=== PATIENT | female | born 1975 | race Caucasian/White ===

== ENCOUNTER 2016-12-12 01:37 | Inpatient (IN) | payer OTHER ==
[~2016-12-12] VITALS: Ht 162.6 cm; Wt 90.7 kg
--- NOTE | ~2016-12-12 | EKG ---
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1975 Requested By: Corona Moulton Order Number: [id number] MD: Andres Simon Measurements Intervals [place] Rate: 94 P: [place]: QRS: 22 QRSD: 92 T: -89 QT: 500 QTc: 626 Interpretive Statements Sinus rhythm Nonspecific ST and T wave abnormality Prolonged QT interval Compared to ECG 08/01/2006 15:55:43 T-wave abnormality now present Prolonged QT interval now present Sinus bradycardia no longer present Electronically Signed On 12-12-2016 16:01:56 CDT by Andres Simon [email or web address] <ELECTRONICALLY SIGNED> By: Andres Simon MD, FACC 12/12/16 1601 0247 0247 Andres Simon MD, [facility] /EPI
[2016-12-12 01:45] VITALS: BP 230/189
[2016-12-12 04:09] LABS: BASOPHILS 1.4 % (0.0-2.0); EOSINOPHILS 0.7 % (0.0-3.0); HEMATOCRIT 39.6 % (37.0-47.0); HEMOGLOBIN 13.5 gm/dL (12.0-15.0); LYMPHOCYTES 20.6 % (24.0-44.0); MCH 28.6 pg (26.0-34.0); MCV 84.3 fL (80.0-100.0); MONOCYTES 6.6 % (1.0-8.0); PLATELET COUNT 305 thou/uL (150-400); POLYS 70.7 % (36.0-66.0); RDW 15.3 % (10.5-14.5); WBC 11.3 thou/uL (4.0-11.0)
[2016-12-12 04:11] LABS: MANUAL DIFF NO
[2016-12-12 04:14] LABS: ANION GAP 14 mmol/L (7-16); BUN 6 mg/dL (7-18); CALCIUM 9.2 mg/dL (8.5-10.1); CHLORIDE 105 mmol/L (98-107); CO2 22 mmol/L (21-32); CREATININE 0.7 mg/dL (0.6-1.0); GLUCOSE 131 mg/dL (74-106); POTASSIUM 3.1 mmol/L (3.5-5.1); SODIUM 141 mmol/L (136-145)
[2016-12-12 04:22] LABS: ALBUMIN 3.7 g/dL (3.4-5.0); ALKALINE PHOSPHATASE 48 U/L (46-116); SGOT 20 U/L (15-37); SGPT 24 U/L (30-65); TOTAL BILIRUBIN 0.6 mg/dL (<0.1-1.0); TOTAL PROTEIN 7.5 g/dL (6.4-8.2); TROPONIN-I < 0.04 ng/mL (<0.04-0.07)
[2016-12-12 06:58] VITALS: BP 147/86
[2016-12-12 17:50] VITALS: BP 126/68
[2016-12-12 20:00] VITALS: BP 125/74
[2016-12-13 04:00] VITALS: BP 134/83
[2016-12-13 05:25] LABS: HEMATOCRIT 38.5 % (37.0-47.0); HEMOGLOBIN 13.2 gm/dL (12.0-15.0); MCHC 34.4 g/dL (28.0-37.0); MCV 84.3 fL (80.0-100.0); RBC 4.56 mil/uL (4.20-5.00); RDW 15.5 % (10.5-14.5); WBC 10.3 thou/uL (4.0-11.0)
[2016-12-13 05:40] LABS: CALCIUM 8.5 mg/dL (8.5-10.1); CREATININE 0.8 mg/dL (0.6-1.0)
[2016-12-13 05:42] LABS: POTASSIUM 2.8 mmol/L (3.5-5.1)
[2016-12-13 08:22] VITALS: BP 116/71
[2016-12-13] MEDS ORDERED: PROTONIX40 M1 PO (13:40)
[2016-12-13 15:57] LABS: URINE BLOOD 1+ (Negative); URINE COLOR YELLOW; URINE GLUCOSE-RANDOM* NEGATIVE (Negative); URINE KETONES NEGATIVE (Negative); URINE LEUKOCYTES-REFLEX 3+ (Negative); URINE PROTEIN (DIPSTICK) NEGATIVE (Negative)
[2016-12-13 16:08] LABS: URINE BILIRUBIN NEGATIVE (Negative)
[2016-12-13 16:12] LABS: CASTS None Seen /LPF (None Seen); SQUAMOUS 0-3 Few /LPF (0-3); URINE RBC 3-10 Few /HPF (0-2)
[2016-12-13 16:13] LABS: CRYSTALS None Seen /LPF (None Seen)
[2016-12-13 17:52] VITALS: BP 183/97
[2016-12-13 21:00] VITALS: BP 198/109
[2016-12-14 00:05] VITALS: BP 136/80
[2016-12-14 03:09] LABS: HEMATOCRIT 39.8 % (37.0-47.0); HEMOGLOBIN 13.6 gm/dL (12.0-15.0); MCH 28.6 pg (26.0-34.0); MCHC 34.3 g/dL (28.0-37.0); MCV 83.4 fL (80.0-100.0); RBC 4.77 mil/uL (4.20-5.00); RDW 15.7 % (10.5-14.5); WBC 11.8 thou/uL (4.0-11.0)
[2016-12-14 03:17] VITALS: BP 187/95
[2016-12-14 03:22] LABS: CALCIUM 8.6 mg/dL (8.5-10.1); CREATININE 0.6 mg/dL (0.6-1.0); MAGNESIUM 1.9 mg/dL (1.8-2.4)
[2016-12-14 09:00] VITALS: BP 133/82
[2016-12-14 20:00] VITALS: BP 212/101
[2016-12-15 04:00] VITALS: BP 143/106
[2016-12-15 08:35] VITALS: BP 151/91
[2016-12-15 10:13] VITALS: BP 151/91
== END 2016-12-15 10:25 | disposition home or self-care (01) | DRG 103 ==
LOC: ER 01:37 → EROBS 05:45 → 3N 06:59
PROVIDERS: Emergency Medicine; Hospitalist; Nurse Practitioner Family
DX: G43.A1 Cyclical vomiting, in migraine, intractable (principal); K52.9 Noninfective gastroenteritis and colitis, unspecified; T40.7X5A Adverse effect of cannabis (derivatives), initial encounter; F12.10 Cannabis abuse, uncomplicated; I10 Essential (primary) hypertension; J45.909 Unspecified asthma, uncomplicated; F17.210 Nicotine dependence, cigarettes, uncomplicated; Z91.018 Allergy to other foods; Z91.011 Allergy to milk products; Z79.899 Other long term (current) drug therapy
CPT/HCPCS: 10096

== ENCOUNTER 2017-08-25 14:34 | Inpatient (IN) | payer OTHER ==
[~2017-08-25] VITALS: Ht 162.6 cm; Wt 90.3 kg
--- NOTE | ~2017-08-25 | H ---
[facility] [place] [address] HISTORY AND PHYSICAL Name: LEILANI HERNANDEZ Room #: 443-P [facility] IN M.R.#: [id number] Admission: 08/25/17 Attend Phys: Ant Brasher MD Discharge: 08/28/17 Date of : 77 Report #: [id number] THIS REPORT FOR: //name// CC: [facility] physician/PCP Ant Brasher DATE OF SERVICE: 08/25/2017 CHIEF COMPLAINT: Intractable nausea and vomiting. HISTORY OF PRESENT ILLNESS: The patient is a 42-year-old female with no major health problems, history of marijuana abuse, who was hospitalized here for intractable nausea and vomiting in December of 2016. At that time, the patient was treated for the same symptoms, and she was discharged home in stable condition. The patient states that she smokes marijuana on daily basis. She also drinks alcohol few times a week. She developed her symptoms few weeks ago, but during the last couple of days the patient could not keep down any meals or liquids. The patient was seen in the outpatient clinic yesterday. She states that she prescribed some medications, but she does not remember. In the Emergency Room, the patient had blood work that revealed hypokalemia with potassium of 3.2. White count is elevated at 17,000. CT of the abdomen was done that showed no acute findings. Lipase is also in the normal range. In the Emergency Room, the patient had symptomatic treatment. Initially, she felt better, but then her symptoms recurred. The patient has been hemodynamically stable. PAST MEDICAL HISTORY: 1. Hypertension. 2. Marijuana abuse. 3. Tobaccoism. CURRENT MEDICATIONS: None. FAMILY HISTORY: Reviewed and not pertinent to the patient's current condition. SOCIAL HISTORY: The patient smokes marijuana on daily basis, she smokes cigarettes, and drinks alcohol several times a week. REVIEW OF SYSTEMS: As above in HPI section, all others negative. PHYSICAL EXAMINATION: GENERAL: The patient is a young female who looks older than her actual age. She looks uncomfortable due to ongoing symptoms. VITAL SIGNS: Blood pressure is 124/100, heart rate is 98, respiration is [facility] [address] [place] [address] HISTORY AND PHYSICAL Name: LEILANI HERNANDEZ Room #: 443-P [facility] IN [facility].#: [id number] Admission: 08/25/17 Attend Phys: Ant Brasher MD Discharge: 08/28/17 Date of : 77 Report #: [id number] between 20 and 28, temperature is 98.8. HEENT: Pupils are equal. Eye movements are normal. Sclerae are anicteric. Dentition is poor. Oral mucosa is moist. NECK: Supple. The patient has no JVD. Thyromegaly is not appreciated. She has no carotid bruits. CARDIOVASCULAR: The patient has regular rhythm and rate. She has no murmurs, gallops or rubs. RESPIRATORY: Chest moves symmetrically with breathing. The patient has normal respiratory sounds. GASTROINTESTINAL: Abdomen is soft, nondistended and nontender. Bowel sounds are present. The patient has no hepatomegaly or splenomegaly. MUSCULOSKELETAL: There is no edema, cyanosis or clubbing. Range of motion is normal. The patient has no joint deformities. NEUROLOGIC: The patient is alert and oriented x 3. Her examination is grossly nonfocal. SKIN: The patient has acne. No other skin lesions are identified. Skin is dry and warm. LABORATORY DATA: On basic metabolic profile, sodium is 135, potassium is 3.2, chloride is 97. The rest of the electrolytes are normal. Creatinine is 0.8. AST slightly high at 65. Lipase is normal. Calcium is 10.6. Total protein is 8.7. ALT and alkaline phosphatase are normal. Lactic acid is pending. Troponin is normal. Drug screen is pending. On CBC, white count is 17.0, hemoglobin is 15.5, hematocrit is 44.8, platelets 306. Urinalysis is pending. CT of the abdomen is unremarkable. ASSESSMENT AND PLAN: 1. Intractable nausea and vomiting. Unremarkable evaluation. Most likely due to hyperemesis related to marijuana abuse. As noted, the patient had similar presentation last summer. Her lipase is normal and CT of the abdomen is unremarkable. Gastroenteritis is also possible, as well as cyclic vomiting syndrome. The patient will be treated symptomatically. 2. Dehydration and hypokalemia. We will replace potassium IV and we will start the patient on IV fluids. 3. Leukocytosis and mildly elevated hemoglobin, likely due to hemoconcentration from nausea and vomiting. Infection is less likely. Lactic acid and blood cultures have already been ordered. Results will be followed. 4. Marijuana and tobacco abuse. Excessive alcohol intake. The patient is strongly advised to quit. 5. Deep venous thrombosis prophylaxis. We will use subcutaneous Lovenox. <ELECTRONICALLY SIGNED> By: Ant Brasher MD 08/29/17 1410 1704 1736 Ant Brasher MD /nt
--- NOTE | ~2017-08-25 | HC ---
[facility] [address] [address] CONSULTATION Name: LEILANI HERNANDEZ Room #: 443-P ADM IN M.R.#: [id number] Admission: 08/25/17 Attend Phys: Ant Brasher MD Discharge: Date of : 77 Report #: [id number] THIS REPORT FOR: //name// CC: FAM physician/PCP Ant Brasher DATE OF SERVICE: 08/27/2017 REASON FOR CONSULTATION: Intractable nausea and vomiting. CONSULTING PHYSICIAN: Ant Brasher MD. HISTORY OF PRESENT ILLNESS: This is a 42-year-old female with no major medical problems who was admitted in the hospital on 08/25/2017 with intractable nausea and vomiting. She states her nausea and vomiting have improved today. She states she smokes marijuana on a daily basis. She also drinks alcohol 3 times a week. She had a similar episode in 12/2016 when she was admitted for a few days and discharged. She states she is relocated from [place] because of her family. In [place], she had admissions similar to these for 3-5 days. She reports having at least 4 upper endoscopies. Last endoscopy was 1 year ago that was unremarkable per her report. I do not have those records to view. She currently wishes to go home. She is agreeable to try diet. REVIEW OF SYSTEMS: As noted in HPI; otherwise, 10-point review of systems is negative.. PAST MEDICAL HISTORY: 1. Marijuana use. 2. Tobaccoism. ALLERGIES AND MEDICATIONS: Reviewed and noted. SOCIAL HISTORY: She smokes cigarettes and drinks alcohol several times a week. She smokes marijuana on a daily basis. FAMILY HISTORY: No family members with colorectal cancer or GI malignancies. PHYSICAL EXAMINATION: GENERAL: Alert and oriented to time, place and person, cooperative, appears in mild distress with nausea. VITAL SIGNS: Hemodynamically stable, afebrile. HEENT: Normocephalic, atraumatic head. EYES: Pupils equal, round, reactive to light and accommodation. Extraocular movements intact. No pallor. No icterus. [facility] [address] [place] [address] CONSULTATION Name: LEILANI HERNANDEZ Room #: 443-P [facility] IN M.R.#: [id number] Admission: 08/25/17 Attend Phys: Ant Brasher MD Discharge: Date of : 77 Report #: [id number] NECK: Supple. Midline trachea. Thyroid palpable. CARDIOVASCULAR: Regular rate and rhythm. No murmurs. RESPIRATORY: Chest clear to auscultation bilaterally. ABDOMEN: Soft, nontender, nondistended. Bowel sounds present. EXTREMITIES: No cyanosis, clubbing, edema. SKIN: Warm and dry. No rash. NEUROLOGIC: Cranial nerves 2-12 grossly intact. No focal deficits. LABORATORY DATA: White count 10.2. Admit white count was 17, hemoglobin 14.4, sodium 135, potassium 3.2, creatinine is 0.8. Normal liver function test except mildly elevated AST of 65. Lipase is normal. Troponin is negative. CT scan of the abdomen and pelvis is unremarkable. ASSESSMENT AND PLAN: 1. Intractable nausea and vomiting. Suspect cannabis hyperemesis syndrome to explain her chronic nausea and vomiting. The acute flare could be from underlying viral gastroenteritis. Cyclical nausea, vomiting is also in the differential. Normal lipase points away from pancreatitis. CT scan of the abdomen and pelvis is unremarkable pointing away from cholecystitis to cause her chronic cholecystitis. Advance diet cautiously and if able to tolerate soft diet, then can be discharged home. If nausea and vomiting persist and the patient in the hospital on Tuesday, then upper endoscopy can be arranged. 2. Elevated AST. This is likely secondary to alcohol intake. Minimizing alcohol was advised, but I doubt she would adhere to that. 3. Marijuana abuse. I had a lengthy discussion regarding the role of marijuana in chronic nausea. She is reluctant to quit marijuana use. Thank you for allowing me to participate in the care of the patient. <ELECTRONICALLY SIGNED> By: Dennis Garcia MD 08/28/17 0913 1303 1330 Dennis Garcia MD /nt
--- NOTE | ~2017-08-25 | EKG ---
[address] [address] ELECTROCARDIOGRAM REPORT Name: LEILANI HERNANDEZ Room #: 443-P ADM IN M.R.#: [id number] Admission: 08/25/17 Attend Phys: Ant Brasher MD Discharge: Date of : 77 Report #: [id number] THIS REPORT FOR: //name// 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: [facility] : 1975 Requested By: Vesta Clark Order Number: [id number] MD: Andres Simon Measurements Intervals [place] Rate: 52 P: 10 IA: 133 QRS: 37 QRSD: 98 T: 12 QT: 463 QTc: 431 Interpretive Statements Sinus rhythm Nonspecific ST segment abnormality Compared to ECG 12/12/2016 02:47:10 Prolonged QT interval no longer present Electronically Signed On 08-26-2017 8:22:42 [employer] APPLICATION SUPPORT SPECIALIST by Andres Simon [email or web address] <ELECTRONICALLY SIGNED> By: Andres Simon MD, [facility] 08/26/17821 1501 1501 Andres Simon MD, [facility] /EPI
--- NOTE | ~2017-08-25 | D ---
[facility] [place] [address] [address] DISCHARGE SUMMARY Name: LEILANI HERNANDEZ Room #: 443-P [facility] IN M.R.#: [id number] Admission: 08/25/17 Attend Phys: Ant Brasher MD Discharge: 08/28/17 Date of : 77 Report #: [id number] THIS REPORT FOR: //name// CC: [facility] physician/PCP Ant Brasher DATE OF SERVICE: 08/28/2017 ATTENDING PHYSICIAN: Dr. Brasher CONSULTING PHYSICIAN: Dr. Garcia. DISCHARGE DIAGNOSES: 1. Nausea and vomiting, resolved, likely related to heavy marijuana use. 2. Hypokalemia, replaced. 3. Dehydration, resolved. 4. Leukocytosis, resolved. DISPOSITION: Home. Followup with primary doctor. HOSPITAL STAY: The patient is a 42-year-old female admitted to the hospital with intractable nausea and vomiting and hypokalemia. She was started on IV fluids. She was receiving antinausea medication and Protonix. She was seen in consultation by GI, Dr. Garcia. It was felt that hyperemesis, nausea and vomiting were due to heavy marijuana use. The patient was counseled on cessation of marijuana use. The patient did well. Nausea and vomiting resolved. Hypokalemia, replaced. The patient was seen and examined on 08/28/2017. She is stating that she is feeling well. She denies any complaints. No chest pain, no shortness of breath, no abdominal pain, no nausea and no vomiting. She ate supper yesterday and tolerated it, did not throw up and ate breakfast this morning. PHYSICAL EXAMINATION: VITAL SIGNS: Her temperature is 36.7, pulse 57, respirations 18 and blood pressure 132/92. HEENT: Head is normocephalic. Oral mucosa pink and moist. NECK: Supple. LUNGS: Showed clear breath sounds. CARDIAC: S1 and S2 normal. Rhythm is regular. ABDOMEN: Soft, nontender and nondistended. Bowel sounds normoactive. EXTREMITIES: Showed no edema and no calf tenderness. NEUROLOGIC: No motor or sensory deficits. LABORATORY DATA: Sodium 138, potassium 3.3, BUN 7 and creatinine 0.7. The patient received 40 mEq of potassium supplements. The patient will be [address] [address] DISCHARGE SUMMARY Name: LEILANI HERNANDEZ Room #: 443-P [facility] IN ..#: [id number] Admission: 08/25/17 Attend Phys: Ant Brasher MD Discharge: 08/28/17 Date of : 77 Report #: [id number] discharging home in improved and stable condition. She was encouraged to eat food rich in potassium such as bananas, strawberries and orange juice. She was counseled on cessation of marijuana use. She was instructed to follow up with primary doctor. CONDITION ON DISCHARGE: Stable and normal back to baseline. <ELECTRONICALLY SIGNED> By: Rabia Mullen MD 09/25/17 1522 1224 1256 MD conner Cherry
[~2017-08-25 14:34] MED LIST: BACTRIM DS TAB1 EACH PO; MOBIC7.5 MG PO; PHENAZOPYRIDIN200 M2 PO; PROTONIX40 M1 PO
[2017-08-25 14:44] VITALS: BP 124/100
[2017-08-25 15:11] LABS: ABSOLUTE NEUTROPHILS 10.6 thou/uL (1.4-8.2); BASOPHILS 0.6 % (0.0-2.0); EOSINOPHILS 0.4 % (0.0-3.0); HEMATOCRIT 44.8 % (37.0-47.0); HEMOGLOBIN 15.5 gm/dL (12.0-15.0); LYMPHOCYTES 31.2 % (24.0-44.0); MCH 29.9 pg (26.0-34.0); MCHC 34.7 g/dL (28.0-37.0); MCV 86.2 fL (80.0-100.0); MONOCYTES 5.2 % (1.0-8.0); PLATELET COUNT 306 thou/uL (150-400); POLYS 62.6 % (36.0-66.0); RBC 5.19 mil/uL (4.20-5.00); RDW 15.3 % (10.5-14.5)
[2017-08-25 15:18] LABS: ANION GAP 12 mmol/L (7-16); BUN 6 mg/dL (7-18); CALCIUM 10.6 mg/dL (8.5-10.1); CHLORIDE 97 mmol/L (98-107); CO2 26 mmol/L (21-32); CREATININE 0.8 mg/dL (0.6-1.0); GLUCOSE 129 mg/dL (74-106); POTASSIUM 3.2 mmol/L (3.5-5.1); SODIUM 135 mmol/L (136-145)
[2017-08-25 15:28] LABS: ALBUMIN 4.2 g/dL (3.4-5.0); LIPASE 128 U/L (73-393); SGOT 65 U/L (15-37); SGPT 55 U/L (30-65); TOTAL BILIRUBIN 0.6 mg/dL (<0.1-1.0); TOTAL PROTEIN 8.7 g/dL (6.4-8.2); TROPONIN-I < 0.04 ng/mL (<0.06)
[2017-08-25 17:14] VITALS: BP 198/100
[2017-08-25 18:38] LABS: URINE BILIRUBIN NEGATIVE (Negative); URINE BLOOD 1+ (Negative); URINE CLARITY CLEAR; URINE COLOR YELLOW; URINE GLUCOSE-RANDOM* NEGATIVE (Negative); URINE KETONES TRACE (Negative); URINE LEUKOCYTES NEGATIVE (Negative); URINE NITRITE NEGATIVE (Negative); URINE PROTEIN (DIPSTICK) TRACE (Negative); URINE SPECIFIC GRAVITY <= 1.005 (1.005-1.035); URINE UROBILINOGEN 0.2 E.U./dl (0.2-1.0)
[2017-08-25 18:42] LABS: SQUAMOUS 0-3 Few /LPF (0-3); URINE RBC 0-2 Rare /HPF (0-2); URINE WBC 0-5 Rare /HPF (0-5)
[2017-08-25 18:43] LABS: BACTERIA None Seen /HPF (None Seen); CASTS None Seen /LPF (None Seen); CRYSTALS None Seen /LPF (None Seen)
[2017-08-25 18:47] LABS: AMP/METHAMP Negative (Negative); BARBITURATES Negative (Negative); BENZODIAZEPINES Negative (Negative); COCAINE Negative (Negative); METHADONE Negative (Negative); OPIATES POSITIVE (Negative); PCP Negative (Negative)
[2017-08-25 19:11] VITALS: BP 174/92
[2017-08-25 19:39] VITALS: BP 192/108
[2017-08-26 00:30] VITALS: BP 183/76
[2017-08-26 03:27] VITALS: BP 172/91
[2017-08-26 03:59] LABS: ABSOLUTE NEUTROPHILS 8.3 thou/uL (1.4-8.2); BASOPHILS 0.4 % (0.0-2.0); HEMATOCRIT 41.8 % (37.0-47.0); HEMOGLOBIN 14.4 gm/dL (12.0-15.0); LYMPHOCYTES 15.3 % (24.0-44.0); MCH 29.7 pg (26.0-34.0); MCHC 34.5 g/dL (28.0-37.0); PLATELET COUNT 270 thou/uL (150-400); POLYS 81.3 % (36.0-66.0); RBC 4.86 mil/uL (4.20-5.00); RDW 15.1 % (10.5-14.5); WBC 10.2 thou/uL (4.0-11.0)
[2017-08-26 04:00] LABS: CALCIUM 8.9 mg/dL (8.5-10.1); CREATININE 0.6 mg/dL (0.6-1.0)
[2017-08-26 08:00] VITALS: BP 113/56
[2017-08-26 16:00] VITALS: BP 124/80
[2017-08-26 19:14] VITALS: BP 126/73
[2017-08-27 04:14] VITALS: BP 210/101
[2017-08-27 04:16] VITALS: BP 222/94
[2017-08-27 06:07] VITALS: BP 188/82
[2017-08-27 08:35] VITALS: BP 125/75
[2017-08-27 10:33] LABS: CALCIUM 9.3 mg/dL (8.5-10.1); CREATININE 0.7 mg/dL (0.6-1.0)
[2017-08-27 16:16] VITALS: BP 149/75
[2017-08-27 19:33] VITALS: BP 154/93
[2017-08-28 03:00] VITALS: BP 144/89
[2017-08-28 05:08] LABS: CALCIUM 8.6 mg/dL (8.5-10.1); CREATININE 0.7 mg/dL (0.6-1.0)
[2017-08-28 05:12] LABS: POTASSIUM 2.9 mmol/L (3.5-5.1)
[2017-08-28 09:28] VITALS: BP 136/92
[2017-08-28 12:54] VITALS: BP 136/92
[2017-08-28 13:03] VITALS: BP 136/92
== END 2017-08-28 13:00 | disposition home or self-care (01) | DRG 897 ==
LOC: ER 14:34 → EROBS 16:35 → 4S 19:14
PROVIDERS: Internal Medicine; Internal Medicine Endocrinology, Diabetes & Metabolism; Physician Assistant
DX: F12.10 Cannabis abuse, uncomplicated (principal); R65.10 Systemic inflammatory response syndrome (SIRS) of non-infectious origin without acute organ dysfunction; E87.6 Hypokalemia; I10 Essential (primary) hypertension; E86.0 Dehydration; D72.829 Elevated white blood cell count, unspecified; F17.210 Nicotine dependence, cigarettes, uncomplicated
CPT/HCPCS: 10195